=== PATIENT | male | born 1980 | race Hispanic/Latino ===

== ENCOUNTER 2018-08-17 10:49 | Emergency (ER) | payer OTHER ==
[~2018-08-17] VITALS: Ht 188 cm; Wt 97.5 kg
[~2018-08-17 10:49] MED LIST: HYDROCODON-ACE1 EA10 PO; LEVAQUIN500 MG PO; METRONIDAZOLE500 MG PO
--- NOTE | 2018-08-17 11:54 | Diagnostic Imaging Report ---
PROCEDURE:CXR 2 VIEW - HOPD COMPARISON:None. INDICATIONS:chest tightness, cough x 1 month FINDINGS:Lungs are well-inflated. No focal airspace consolidation, pleural effusion, or pneumothorax. Mild tortuosity of the thoracic aorta with an otherwise normal cardiomediastinal contour. No pulmonary edema. No acute osseous abnormality. CONCLUSION: No acute cardiopulmonary abnormality. Dictated by: Zafar Hernandez M.D. on 08/17/2018 at 12:04 Electronically approved by: Zafar Hernandez M.D. on 08/17/2018 at 12:04
[2018-08-17 12:43] VITALS: BP 136/66
[2018-08-17] MEDS ORDERED: IBUPROFEN 600 MG TAB PO STA (13:19)
== END 2018-08-17 13:20 | disposition home or self-care (01) ==
LOC: FSED 10:49
DX: R06.00 Dyspnea, unspecified (principal); R05 Cough; J20.9 Acute bronchitis, unspecified; I10 Essential (primary) hypertension; F17.210 Nicotine dependence, cigarettes, uncomplicated
CPT/HCPCS: 71046; 80048; 83880; 85025; 85379; 87400; 99283